=== PATIENT | female | born 1985 | race Hispanic/Latino ===

== ENCOUNTER 2022-01-15 13:47 | Emergency (ER) | payer SELFPAY ==
[2022-01-15] MEDS ORDERED: Ketorolac Tromethamine 30 MG/ML VIAL ONE (15:43)
== END 2022-01-15 15:50 | disposition home or self-care (01) ==
LOC: CSHERS 13:47
DX: L84 Corns and callosities (principal)
CPT/HCPCS: 96372; 99283; J1885